=== PATIENT | male | born 1950 | race African-American/Black ===

== ENCOUNTER 2020-07-17 04:54 | Emergency (ER) | payer OTHER, SELFPAY ==
[2020-07-17 04:52] VITALS: BP 0/0; PULSE 0; RESP 0
--- NOTE | 2020-07-17 04:55 | PC.NURSE ---
See Code Blue Flow Sheet/Notes
--- NOTE | 2020-07-17 05:06 | ED.CPR ---
HPI - CPR General Chief Complaint: Cardiac Arrest/CPR Stated Complaint: unresponsive, acls protocol Time Seen by Provider: 07/17/20 05:06 History of Present Illness HPI narrative: Brought in by EMS for cardiac arrest. Family reportedly witnessed him collapse and initiated CPR. EMS found him to be in asystole. ACLS protocol was initiated. He received Multiple doses of EPI. Per ems he had been down for about 45 minutes prior to arrival here. He was reportedly released from acute rehab, probably from [facility] yesterday. History limited by unresponsive patient. Related Data Home Medications Medication Instructions Recorded Confirmed insulin aspar prt-insulin aspart 30 unit SUB-Q BID ml 07/04/19 11/01/19 100 unit/mL (70-30) subcutaneous soln aspirin 81 mg tablet,delayed 81 mg PO DAILY 05/05/20 05/05/20 release carvedilol 25 mg tablet 50 mg PO Q12H tablet 05/05/20 05/05/20 Allergies Allergy/AdvReac Type Severity Reaction Status Date / Time nka Allergy Unknown Unknown Uncoded 11/01/19 11:05 Review of Systems Review of Systems: ROS unobtainable: Yes unobtainable due to medical condition [facility] Family History Family History Other Diabetes mellitus Social History Social History Smoking status: Never smoker Alcohol intake: current Comments unknown medical history Exam Const: Other: Unresponsive. Severe distress HENMT: Other: Elder tube in place Eyes: Other: Pupils fixed Resp: Other: Bilateral breath sounds with bagging louder on the right Cardio: Other: Pulseless GI: Inspection: distended Skin: Other: badominal bruising Neuro: Other: Unresponsive Extrem: General: edema bilateral Course Course Emergency Course: After an additional dose of epi there was some cardiac activity on the monitor. Compressions were paused and monitor showed v-fib. He was shocked, which reulted in asystole. This happened a second time. following this a final pulse ad rhythym check was performed. He continued to be pulseless with virtually no electrical activity on the monitor. Critical Care Time Critical Care Time Critical Care Time: Yes Total Critical Care Time: 15 Discharge Plan Discharge Clinical Impression: Cardiac arrest Patient Disposition: Condition: Prescriptions: No Action trazodone 50 mg tablet 50 mg PO .At hs Qty: 30 RF: 6 Novolog Mix 70-30 U-100 Insuln 100 unit/mL (70-30) solution 30 unit SUB-Q BID RF: 0 amlodipine 10 mg tablet 10 mg PO DAILY Qty: 90 RF: 1 hydralazine 100 mg tablet 100 mg PO TID Qty: 270 RF: 1 carvedilol 25 mg tablet 50 mg PO Q12H RF: 0 aspirin [Adult Aspirin Regimen] 81 mg tablet,delayed release (DR/EC) 81 mg PO DAILY RF: 0 nystatin 100,000 unit/gram cream 1 applic TOPICAL BID Qty: 15 RF: 0 metformin 500 mg tablet extended release 24 hr See Rx Instructions .ROUTE .COMPLEX Qty: 180 RF: 0 losartan 100 mg tablet See Rx Instructions .ROUTE .COMPLEX Qty: 90 RF: 1 hydrochlorothiazide 25 mg tablet See Rx Instructions .ROUTE .COMPLEX Qty: 90 RF: 1 rosuvastatin 20 mg tablet See Rx Instructions .ROUTE .COMPLEX Qty: 90 RF: 1 clopidogrel 75 mg tablet See Rx Instructions .ROUTE .COMPLEX Qty: 90 RF: 1 Follow-up/Referrals: Brown Elizabeth DO [Primary Care Provider] -
--- NOTE | 2020-07-17 06:18 | PC.NURSE ---
[facility], ok to [facility]. at 0515 spoke with joaquín at [facility], will call back ok to send to [facility], please call and let them know.
--- NOTE | 2020-07-17 08:49 | PC.NURSE ---
Daughter, Manuela Lackey called, [employer] will be the home.
--- NOTE | 2020-07-17 12:16 | PC.NURSE ---
Per Nicolas at [facility], left message for family at 1100, no answer and have not returned call yet.
--- NOTE | 2020-07-17 15:41 | PC.NURSE ---
Called [facility] again, family still undecided will not have a decision before 1700 today. [facility] given name of home which is [employer].
== END 2020-07-17 06:57 | disposition expired ==
LOC: ANHED 05:34
PROVIDERS: Emergency Provider Emergency Medicine
DX: I49.01 Ventricular fibrillation (principal); I46.9 Cardiac arrest, cause unspecified; Z79.82 Long term (current) use of aspirin; Z79.4 Long term (current) use of insulin
CPT/HCPCS: 36680; 92950; 99285; J0171